=== PATIENT | female | born 2000 | race Caucasian/White ===

== ENCOUNTER 2025-08-01 17:48 | Emergency (ER) | payer OTHER, SELFPAY ==
[2025-08-01 17:56] VITALS: BP 135/88; PULSE 97; RESP 16; TEMP 36.4; O2SAT 100; BMI 34.1
--- OUTSIDE RECORDS SUMMARY | 2025-08-01 18:03 | XMS_ITS | Continuity of Care Document ---
Author Organization TIMOTHY Hagen [facility], [place], [facility] ([facility]) Address [address] [place] [address] Care Team Providers Care Billet Sawyer Name Role Phone CHIQUIS CARTAGENA Primary Care Provider Unavailabl e Assessment No assessment recorded. Plan of Treatment Reminders Order Date Submit Date Provider Last Modified By Organization Details Last Modified Time Details Appointments None recorded. Lab respiratory pathogens DNA and RNA panel, PCR, nasopharynx [address] ([facility]), [address] [place], [address], 15:23:41 Referral None recorded. Procedures None recorded. Surgeries None recorded. Imaging None recorded. Medication Orders fluticasone propionate 50 mcg/actuati on nasal spray,suspe nsion [address] [facility], [address], [place], [address], 5 15:23:40 Patient TargetsNo targets recorded. Patient InstructionsNo instructions recorded. Reason for Referral None Reported. Results Created Date Observation Date Name Description Value Unit Range Abnormal Flag Note LastModifiedBy Organization Detail LastModifiedTime 07/01/20 25 07/01/2025 respi rator y patho gens DNA and RNA panel , PCR, nasop haryn x Covid negati ve Not Available [facility]) [address] [place], [address], 07/01/2025 14:50:21 07/01/20 25 07/01/2025 respi rator y patho gens DNA and RNA panel , PCR, nasop haryn x Rhinovirus negati ve Not Available [facility] ([facility]) [address] [place], [address], 07/01/2025 14:50:21 07/01/20 25 07/01/2025 respi rator y patho gens DNA and RNA panel , PCR, nasop haryn x Influenza A negati ve Not Available [facility] ([facility]) [address] [place], [address], 07/01/2025 14:50:21 07/01/20 25 07/01/2025 respi rator y patho gens DNA and RNA panel , PCR, nasop haryn x Influenza B negati ve Not Available [facility] ([facility]) [address] [place], [address], 07/01/2025 14:50:21 07/01/20 25 07/01/2025 respi rator y patho gens DNA and RNA panel , PCR, nasop haryn x RSV negati ve Not Available [facility] ([facility]) [address] [place], [address], 07/01/2025 14:50:21 Result Notes None recorded. Problems Name Problem SNOMED Code Status Onset Date Resolution Date Notes Provider Name and Address Organization Details Recorded Time Allergic rhinitis 46811779 Active 2023 TIMOTHY Pagan [facility] 4 15:28:36 Asthma 619111953 Active 2023 TIMOTHY Pagan [facility] 4 15:30:13 Gastroesophage al reflux disease 209357429 Active 2024 Castillo Cueva MD [address] [place], [address], [facility], [place] 13:37:53 Problem Notes None recorded. Procedures Surgical History Date Name Laterality Status Provider Name and Address Organization Details Recorded Time transfusion of blood product completed YEVGENIY PIERCE [facility], [place] 10/17/2023 15:30:50 tonsilectomy/jamie noids [facility] 15:31:43 Imaging Results None recorded. Procedure Notes None recorded. Medical Equipment None Reported. Allergies No known drug allergies Medications Name Sig Start Date Stop Date Status Note LastModified by Organization Details LastModified Time azithromyci n 250 mg tablet TAKE 2 TABLETS BY MOUTH ON DAY 1, AND THEN TAKE 1 TABLET BY MOUTH ONCE A DAY ON DAY 2 THROUGH DAY 5 10/17 completed Not Available Not Available Not Available prednisone 20 mg tablet TAKE 3 TABLETS BY MOUTH ONCE DAILY FOR 5 DAYS active Not Available Not Available No t Available sulfamethox azole 800 mg-trimetho prim 160 mg tablet TAKE 1 TABLET BY MOUTH EVERY 12 HOURS FOR 7 DAYS 08/28 completed Not Available Not Available Not Available omeprazole 40 mg capsule,del ayed release TAKE 1 CAPSULE BY MOUTH ONCE DAILY 04/16 completed Not Available Not Available Not Available amoxicillin 875 mg tablet TAKE 1 TABLET BY MOUTH EVERY 12 HOURS FOR 10 DAYS 10/17 completed Not Available Not Available Not Available famotidine 20 mg tablet Take 1 tablet twice a day by oral route for 30 days. 07/01 completed Not Available Not Available Not Available pantoprazol e 40 mg tablet,citlali yed release Take 1 tablet every day by oral route. 07/01 completed Not Available Not Available Not Available albuterol sulfate HFA 90 mcg/actuati on aerosol inhaler INHALE 2 PUFFS BY MOUTH EVERY 4 HOURS NEEDED FOR SHORTNESS OF BREATH OR WHEEZING active Not Available Not Available No t Available cefdinir 300 mg capsule TAKE 1 CAPSULE BY MOUTH TWICE DAILY FOR 10 DAYS 07/12 completed Not Available Not Available Not Available fluticasone propionate 50 mcg/actuati on nasal spray,suspe nsion [place] 2 sprays every day by intranasa l route. 2024 active Not Available Not Available Not Avai lable amoxicillin 875 mg-radha rincon clavulanate 125 mg tablet TAKE 1 TABLET BY MOUTH EVERY 12 HOURS WITH MEALS FOR 7 DAYS 04/16 completed Not Available Not Available Not Available Claritin DAILY active Not Available Not Avai lable Not Available Zyrtec 10 mg capsule Take by oral route. active Not Available Not Available No t Available Vitals Date Recorded Body height Body mass index (BMI) Body weight Oxygen saturation Heart rate Body temperature Systolic And Diastolic Provider Name and Address Organization Details Last Updated DateTime 5 160.02 cm 36.3 kg/m2 49352.4 4 g 99 % 95 /min 98.5 [degF] 166/92 mm[Hg] Shanae Whitejulian [facility] 5 14:35:08 Social History Question Answer Notes LastModified by Yuepu Sifang Details LastModified Time Tobacco Smoking Status Never Smoker [facility] 12/04/2023 11:23:18 What Was The Date Of Your Most Recent Tobacco Screening? 07/01/2025 [email or web address] Information not available 07/01/2025 Sex: Unknown Functional Status Question Answer Note LastModified by Yuepu Sifang Details LastModified Time Do you use any illicit or recreational drugs? No [email or web address] Information not available 12/04/2023 What is your level of alcohol consumption? None [email or web address] Information not available 12/04/2023 Mental Status None recorded. Family History Relationship Description Onset Age of this Age Resolved Age Notes LastModified by Organization Details LastModified Time Father Diabetes mellitus [email or web address] Not available 09/21 15:29:04 Father Hypertensive disorder Not available 09/21 15:29:19 Mother Diabetes mellitus [email or web address] Not available 09/21 15:29:04 Mother Hypertensive disorder [email or web address] Not available 09/21 15:29:19 Maternal Grandmother Malignant neoplasm of breast [email or web address] Not available 09/21 15:29:41 Medical History Condition Response Coronary Artery Disease N Other N Gout N Kidney Stones N Blood Diseases N Hyperthyroidism N Breast Cancer N Blood Transfusion N Depression N COPD N Lung Disease N Hypothyroidism N Developmental or Behavioral Disorders N Defects or Inherited Disease N Breast Problem N Difficulty Swallowing N Anesthesia Complications N Meniere's disease N Anxiety Disorder N Muscle, Joint, or Bone Problems N Vision or Eye Problems N Arthritis N Polyps N Infertility N Cancer N Varicosities N Stroke N Endometriosis N Bladder or Kidney Problems N High Cholesterol N Liver Disease N Headaches N Fibromyalgia N Kidney Disease N Allergies/Hayfever Y Heart Problems N Ear or Hearing Problems N Hospitalizations N Thyroid Problems N GI Problems N ADD/ADHD N Skin Problems N Eating Disorder N Anemia N Constipation N Mental Illness N Ovarian Cancer N Diabetes N Bedwetting N Seizures/Epilepsy N Tuberculosis N Eczema N Diverticulitis N Abuse/Domestic Violence N Asthma Y Reflux/GERD N Hepatitis N Heart Disease N Pulmonary Embolism N Pre-Eclampsia N Hypertension N Chronic Ear Infections N Osteoporosis N Chicken Pox N Autism Spectrum Disorder (ASD) N Thrombophilias N Gynecological HistoryNo gynecological history recorded. Obstetrics History GPAL:G 0 P 0 0 0 0 Immunizations Vaccine Type Date Status Note Provider Nam e and Address Organization Details Recorded Time IPV 2002 completed YEVGENIY kidd [facility] 10/17/2023 15:27:58 MMR 08/27/2003 completed YEVGENIY kidd [facility] 10/17/2023 15:27:59 COVID-19, mRNA, LNP-S, PF, 30 mcg/0.3 mL dose 07/27/2022 completed YEVGENIY kidd [facility] 10/17/2023 15:27:59 COVID-19, mRNA, LNP-S, PF, 30 mcg/0.3 mL dose, robert-sucrose 05/17/2022 completed YEVGENIY kidd [facility] 10/17/2023 15:27:59 varicella 02/12/2004 completed YEVGENIY kidd [facility] 10/17/2023 15:27:59 Hib (PRP-T) 2002 completed YEVGENIY kidd, [facility] 10/17/2023 15:27:59 Hib (PRP-T) 01/05/2003 completed YEVGENIY kidd, [facility] 10/17/2023 15:27:59 Hib (PRP-T) 02/12/2004 completed YEVGENIY kidd [facility] 10/17/2023 15:27:59 Hib (PRP-T) 03/09/2003 completed YEVGENIY kidd, [facility] 10/17/2023 15:27:59 DTaP 2002 completed YEVGENIY kidd [facility] 10/17/2023 15:27:59 DTaP 02/12/2004 completed YEVGENIY kidd [facility] 10/17/2023 15:27:59 DTaP-Hep B-IPV 01/05/2003 completed YEVGENIY kidd, [facility] 10/17/2023 15:27:59 DTaP-Hep B-IPV 03/09/2003 completed YEVGENIY kidd [facility] 10/17/2023 15:27:59 Past Encounters Encounter ID Performer Location Encounter Start Date Encounter Closed Date Diagnosis/Indication Diagnosis SNOMED-CT Code Diagnosis ICD10 Code Diagnosis IMO Codes Diagnosis Note [id number] EMMANUEL GLASS [facility] ([facility]) [address] [place] [address] 07/01/2025 14:22:50 07/01/2025 15:33:16 Viral upper respiratory tract infection 594375665 J06.9 367494 Increase po fluids. Rest. May use otc meds as needed for symptoms. Return to clinic with any new or worsening symptoms. Health Concerns Section Related Observation LastModified by Organization Detai ls LastModified Time None Recorded Concern Status LastModified by Organization Details LastModified Time None Recorded Payers Encounter Date Sequence Insurance Name Policy Number Policy Zhao Covered Member ID Zhao Member ID Guarantor Name 07/01/2025 1 ALLIED - [employer] Darwin Guerra [id number] Darwin Guerra Notes Date Note Type Note Provider Name and Address Organization Details Recorded Time 07/01/2025 text/html ROS as noted in the HPI walk inx3 days nasal congestion, cough, sore throat. Patient has taken regular allergy medication for symptoms. EMMANUEL GLASS [address] [place] [address], [phone], [facility], [place] 07/01/2025 15:23:58 OBGyn Episode No OBEpisode recorded.
--- OUTSIDE RECORDS SUMMARY | 2025-08-01 18:03 | XMS_ITS | Data Portability ---
Author Organization [facility] Kaleb Watts [facility], [facility] Address [address] [address] Care Team Providers Care Dental Ceramist Assistant Name Role Phone KRISTIN CARTAGENA Primary Care Provider Unavailabl e Assessment No assessment recorded. Plan of Treatment Reminders Order Date Submit Date Provider Last Modified By Organization Details Last Modified Time Details Appointments None recorded. Lab respiratory pathogens DNA and RNA panel, PCR, nasopharynx [address] ([facility]), [address] [place] [address], [phone], 15:23:41 Referral None recorded. Procedures None recorded. Surgeries None recorded. Imaging None recorded. Medication Orders fluticasone propionate 50 mcg/actuati on nasal spray,suspe nsion [address] [facility], [address], [place], [address], 5 15:23:40 fluticasone propionate 50 mcg/actuati on nasal spray,suspe nsion 2024 025 [facility], [address], [place], [address], 5 16:27:08 pantoprazol e 40 mg tablet,citlali yed release 2024 025 [facility], [address], [place], [address], 14:58:27 famotidine 20 mg tablet 2024 025 [facility], [address], [place], [address], 14:58:31 Bactrim DS 800 mg-160 mg tablet 2023 025 [facility], [address], [place], [address], 15:18:47 Patient TargetsNo targets recorded. Patient InstructionsNo instructions recorded. Reason for Referral None Reported. Results Created Date Observation Date Name Description Value Unit Range Abnormal Flag Note LastModifiedBy Organization Detail LastModifiedTime 07/01/2007/01/2025 respi rator y patho gens DNA and RNA panel , PCR, nasop haryn x Covid negati ve Not Available [facility] ([facility]) [address] [place], [address], 07/01/2025 14:50:21 07/01/2007/01/2025 respi rator y patho gens DNA and RNA panel , PCR, nasop haryn x Rhinovirus negati ve Not Available [facility] ([facility]) [address] [place], [address], 07/01/2025 14:50:21 07/01/20 25 07/01/2025 respi rator y patho gens DNA and RNA panel , PCR, nasop haryn x Influenza A negati ve Not Available [facility] ([facility]) [address] [place], [address], 07/01/2025 14:50:21 07/01/20 25 07/01/2025 respi rator y patho gens DNA and RNA panel , PCR, nasop haryn x Influenza B negati ve Not Available [facility] ([facility]) [address] [place], [address], 07/01/2025 14:50:21 07/01/20 25 07/01/2025 respi rator y patho gens DNA and RNA panel , PCR, nasop haryn x RSV negati ve Not Available [facility] ([facility]) [address] [place], [address], 07/01/2025 14:50:21 Result Notes None recorded. Problems Name Problem SNOMED Code Status Onset Date Resolution Date Notes Provider Name and Address Organization Details Recorded Time Allergic rhinitis 77968595 Active 2023 YEVGENIY kidd [facility] 4 15:28:36 Asthma 221330659 Active 2023 YEVGENIY kidd [facility] 4 15:30:13 Gastroesophage al reflux disease 291647861 Active 2024 Castillo Cueva MD [address] [place] [address], [phone], [facility] 5 13:37:53 Problem Notes None recorded. Procedures Surgical History Date Name Laterality Status Provider Name and Address Organization Details Recorded Time transfusion of blood product completed YEVGENIY PIERCE [facility] 10/17/2023 15:30:50 tonsilectomy/jamie noids completed YEVGENIY BENJIBarbi PIERCE [facility] 10/17/2023 15:31:43 Imaging Results None recorded. Procedure [...] propionate 50 mcg/actuati on nasal spray,suspe nsion [place] 2 sprays every day by intranasa l route. 2024 active Not Available Not Available Not Avai lable amoxicillin 875 mg-potassiu m clavulanate 125 mg tablet TAKE 1 TABLET [...] Details Last Updated DateTime 5 160.02 cm 37.2 kg/m2 20811.4 g 98 % 88 /min 98.5 [degF] 134/90 mm[Hg] Shanae AGUIRRE [facility], .LCaseyCCasey 5 13:34:59 Date Recorded Body height Body mass index (BMI) Body weight Oxygen saturation Heart rate Body temperature Systolic And Diastolic Provider Name and Address Organization Details Last Updated DateTime 5 160.02 cm 37.4 kg/m2 45439.6 9 g 99 % 92 /min 98.2 [degF] 162/88 mm[Hg] Shanae Real [facility] 5 15:51:27 Date Recorded Body height Body mass index (BMI) Body weight Oxygen saturation Heart rate Body temperature Systolic And Diastolic Provider Name and Address Organization Details Last Updated DateTime 5 160.02 cm 37.7 kg/m2 01685.1 7 g 98 % 98 /min 98.1 [degF] 142/70 mm[Hg] Shanae [facility] 5 15:42:46 Date Recorded Body height Body mass index (BMI) Body weight Body temperature Oxygen saturation Systolic And Diastolic Provider Name and Address Organization Details Last Updated DateTime 4 160.02 cm 36.8 kg/m2 66182.2 1 g 98.5 [degF] 99 % 138/70 mm[Hg] Brisa Carlos [facility] 4 10:35:04 Date Recorded Body height Body mass index (BMI) Body weight Oxygen saturation Heart rate Body temperature Systolic And Diastolic Provider Name and Address Organization Details Last Updated DateTime 5 160.02 cm 36.3 kg/m2 96589.4 4 g 99 % 95 /min 98.5 [degF] 166/92 mm[Hg] Shanae [facility] 5 14:35:08 Social History Question Answer Notes LastModified by [employer] Details LastModified Time Tobacco Smoking Status Never Smoker ELY kidd [facility] 12/04/2023 11:23:18 What Was The Date Of Your Most Recent Tobacco Screening? 07/01/2025 [email or web address] Information not available 07/01/2025 Sex: Unknown Functional Status Question Answer Note LastModified by Organizat ion Details LastModified Time Do you use any illicit or recreational drugs? No [email or web address] Information not available 12/04/2023 What is your level of alcohol consumption? None [email or web address] Information not available 12/04/2023 Mental Status None recorded. Family History Relationship Description Onset Age of this Age Resolved Age Notes LastModified by Organization Details LastModified Time Father Diabetes mellitus [email or web address] Not available 09/21 15:29:04 Father Hypertensive disorder [email or web address] Not available 09/21 15:29:19 Mother Diabetes mellitus [email or web address] Not available 09/21 15:29:04 Mother Hypertensive disorder [email or web address] Not available 09/21 15:29:19 Maternal Grandmother Malignant neoplasm of breast [email or web address] Not available 09/21 15:29:41 Medical History Condition Response Coronary Artery Disease N Other N Gout N Kidney Stones N Blood Diseases N Hyperthyroidism N Breast Cancer N Blood Transfusion N Depression N Hypothyroidism N Lung Disease N COPD N Defects or Inherited Disease N Developmental or Behavioral Disorders N Breast Problem N Difficulty Swallowing N Anesthesia Complications N Meniere's disease N Anxiety Disorder N Muscle, Joint, or Bone Problems N Vision or Eye Problems N Arthritis N Polyps N Infertility N Cancer N Varicosities N Stroke N Endometriosis N Bladder or Kidney Problems N High Cholesterol N Liver Disease N Fibromyalgia N Headaches N Kidney Disease N Allergies/Hayfever Y Heart [...] Recorded Time IPV 2002 [facility]/2023 15:27:58 MMR 08/27/2003 bruna kidd [facility] 10/17/2023 15:27:59 COVID-19, mRNA, LNP-S, PF, 30 mcg/0.3 mL dose 07/27/2022 completed YEVGENIY kidd, [facility] 10/17/2023 15:27:59 COVID-19, mRNA, LNP-S, PF, 30 mcg/0.3 mL dose, robert-sucrose 05/17/2022 completed YEVGENIY PIERCE bernabe, [facility] 10/17/2023 15:27:59 varicella 02/12/2004 completed YEVGENIY kidd, [facility] 10/17/2023 15:27:59 Hib (PRP-T) 2002 completed YEVGENIY kidd [facility] 10/17/2023 15:27:59 Hib (PRP-T) 01/05/2003 [facility] 10/17/2023 15:27:59 Hib (PRP-T) 02/12/2004 completed YEVGENIY PIERCE bernabe, [facility] 10/17/2023 15:27:59 Hib (PRP-T) 03/09/2003 completed YEVGENIY PIERCE bernabe, [facility] 10/17/2023 15:27:59 DTaP 2002 completed YEVGENIY PIERCE bernabe, [facility] 10/17/2023 15:27:59 DTaP 02/12/2004 completed YEVGENIY PIERCE bernabe, [facility] 10/17/2023 15:27:59 DTaP-Hep B-IPV 01/05/2003 completed YEVGENIY kidd, [facility] 10/17/2023 15:27:59 DTaP-Hep B-IPV 03/09/2003 completed YEVGENIY BENJI PIERCE [facility] 10/17/2023 15:27:59 Past Encounters Encounter ID Performer Location Encounter Start Date Encounter Closed Date Diagnosis/Indication Diagnosis SNOMED-CT Code Diagnosis ICD10 Code Diagnosis IMO Codes Diagnosis Note [id number] MARGOT CID [facility] ([facility]) [address] [place] [phone] 12/20/2022 12:20:35 01/01/2023 11:28:03 Acute right otitis media 226529979 H66.91 Acute maxi llary sinusitis 12412264 J01.00 [id number] FRANCISCA NESBITT [facility] ([facility]) [address] [place] [phone] 01/01/2023 10:47:17 01/01/2023 18:56:53 Acute maxillary sinusitis 11424155 J01.00 encouraged patient to complete her dosing as prescribed , restart sudafed at home [id number] Kristin Cartagena MD [facility] ([facility]) [address] [place] [phone] 10/17/2023 15:19:57 10/17/2023 16:17:05 Abdominal pain 32707763 R10.9 Started 2 mos ago with just heartburn. Now its getting worse and more frequent. 10/17/23. Pilonidal cyst 11580458 L05.91 hasnt had trouble in >6 months. trial of antibiotic . may need more definitive treatment if persists. Gastritis 7095329 K29.70 [id number] Kristin Cartagena MD [facility] ([facility]) [address] [place] [phone] 12/04/2023 10:59:46 12/04/2023 13:49:26 Seasonal allergic rhinitis 475006393 J30.2 advised to take zyrtec or xyzal in addition to claritin during allergy season. [id number] Kristin Cartagena MD [facility] ([facility]) [address] [place] [id number] 01/22/2024 15:18:14 01/22/2024 16:54:48 Pilonidal cyst 35336864 L05.91 treated in Sep successful ly w antibiotic s. this is not as bad as that last episode but is recurrent. I suggest surgical evaluation . [id number] DIANA KIRBY APRN [facility] ([facility]) [address] [place] [phone] 02/15/2024 08:46:52 02/15/2024 09:57:19 Acute maxillary sinusitis 05609291 J01.00 [id number] [facility] [address] [place] [phone] 5 04/16/2024 12:49:56 04/16/2024 13:44:41 Cough 76458026 R05.9 COVID-19 006791989 U07.1 Pt is covid positive here in the office today.I counseled the patient on diagnosis, treatment options, medication s, and expectatio ns. All questions were addressed. Paxlovid declined.P t is to stay home until no fever for 24 hours and then mask in public for an additional 5 days.They were instructed to call the office or come in for Follow Up with any questions, concerns, or worsening problems. [id number] EMMANUEL TEMPLE [facility] ([facility]) [address] [place] [phone] 06/17/2024 10:28:22 06/17/2024 11:25:58 Hematoma of right lower leg 7697390138 6224786 S80.11XA Discussed use of antibiotic , apply an ASHLEY bandage for some compressio n, and apply a warm compress for 10 minutes 3-4 times a day. If you develop increased redness, tenderess, swelling or concerns for infection then return for re-evaluat ion [id number] Castillo Cueva MD [facility] ([facility]) [address] [place] [phone] 08/28/2024 13:25:15 09/01/2024 12:23:50 Gastroesophageal reflux disease 563366833 K21.9 Will transition to a higher dose PPI and start Pepcid and have her follow-up with PCP if symptoms or not improving. Patient was instructed to avoid NSAIDs. [id number] EMMANUEL GLASS [facility] ([facility]) [address] [place] [address] 12/02/2024 15:36:47 12/02/2024 16:13:50 Abrasion of intraoral surface of lip 149097226 S00.511A Avoid chewing on lips. RTC with any new or worsening symptoms. [id number] EMMANUEL GLASS [facility] ([facility]) [address] [place], [place] [phone] 12/30/2024 15:34:07 12/30/2024 17:23:34 Acute sinusitis 40795971 J01.80 [id number] May use otc meds like zyrtec and sudafed as needed for symptoms. Return to clinic with any new or worsening symptoms. [id number] EMMANUEL GLASS [facility] ([facility]) [address] [place] [phone] 07/01/2025 14:22:50 07/01/2025 15:33:16 Viral upper respiratory tract infection 498315812 J06.9 [id number] Increase po fluids. Rest. May use otc meds as needed for symptoms. Return to clinic with any new or worsening symptoms. Health Concerns Section Related Observation LastModified by Organization Detai ls LastModified Time None Recorded Concern Status LastModified by Organization Details LastModified Time None Recorded Advance Directives Directive None Recorded Payers Insurance Date Sequence Insurance Name Policy Number Policy Zhao Covered Member ID Zhao Member ID Guarantor Name 07/01/2025 1 MERGED WITH [facility] (O) [id number] Cori Breaux [id number] Darwin Guerra 07/01/2025 1 [facility] [employer] (PPO) Drawin Guerra [id number] Darwin Guerra Notes Date Note Type Note Provider Name and Address Organization Details Recorded Time 06/17/2024 text/html [facility] area on right lower leg. States she hit this leg on her car accidentally about 3 days ago. The area is swollen and tender to touch. EMMANUEL TEMPLE [address] [place] [address], [phone], [facility] 06/17/2024 11:24:06 08/28/2024 text/html ROS as noted in the HPI walk Ryan is a 24-year-old that presents with ulcer like pain. Patient has a history of ulcer in the past. Patient has been taking yggh-gbn-hflnvoe omeprazole without significant improvement. Patient reports burning and upper abdominal pain. Castillo Cueva MD [address] [place] [address], [phone], [facility] 08/31/2024 07:16:51 12/02/2024 text/html ROS as noted in the HPI walk innoticed white dots on edge of lips reports does not itch or hurt. States that she noticed it first today. On the inner aspect of upper and lower lip. Patient states that she does chew on her lips at times. EMMANUEL GLASS [address] [place] [address], [phone], [facility] 12/02/2024 16:12:18 12/30/2024 text/html ROS as noted in the HPI walk inx4 days sinus pressure, MICHEL, full ears, nasal congestion, cough. Hx of asthma. Has been taking otc claritin and zyrtec. EMMANUEL GLASS [address] [place] [address], [phone], [facility] 12/30/2024 16:27:14 07/01/2025 text/html ROS as noted in the HPI walk inx3 days nasal congestion, cough, sore throat. Patient has taken regular allergy medication for symptoms. EMMANUEL GLASS [address] [place] [address], , [facility] 07/01/2025 15:23:58 OBGyn Episode No OBEpisode recorded.
--- NOTE | 2025-08-01 19:00 | XRR_ITS ---
PROCEDURE INFORMATION: Exam: XR Left Hand Exam date and time: 08/01/2025 7:11 PM Age: 24 years old Clinical indication: Injury or trauma; Other: Closed car door on finger; Work related; Crushing; Left; Middle finger; Additional info: Shut hand in door TECHNIQUE: Imaging protocol: Radiologic exam of the left hand. Views: 3 or more views. COMPARISON: No relevant prior studies available. FINDINGS: Bones/joints: Normal. Soft tissues: Normal. XR/XR hand LT min 3V* 25180 IMPRESSION: No acute findings.
--- NOTE | 2025-08-01 21:07 | W.ED.EXTPRO ---
HPI - Extremity Problem General: Chief complaint: Extremity Injury, Upper Stated complaint: Lt middle finger inj Time Seen by Provider: 08/01/25 18:44 Source: patient Mode of arrival: ambulatory Limitations: no limitations History of Present Illness: Patient is a 24-year-old female who presents emergency department after shutting her left hand in car door. She is primarily having pain to the left third digit, stating overall it is mild but she is concerned with the bruising and swelling that has popped up. Has range of motion intact and there is no significant deformity, just wants an x-ray to make sure there is no fracture. MD Complaint: extremity pain Pain Consistency: constant Location: left and upper extremity (hand) Associated symptoms: Deny chest pain, fever(s) or rash Related Data Previous Rx's ?Medication ?Instructions ?Recorded albuterol sulfate 90 mcg/actuation 2 inh inhalation Q4H PRN shortness 06/06/25 aerosol inhaler (Ventolin HFA) of breath or wheezing #6.7 grams cefdinir 300 mg capsule 300 mg PO BID 10 days #20 caps 07/18/25 prednisone 20 mg tablet 60 mg (3 x 20 mg) PO DAILY 5 days 07/18/25 #15 tabs Allergies Allergy/AdvReac Type Severity Reaction Status Date / Time No Known Allergies Allergy Verified 08/01/25 17:59 Review of Systems General: Reports: 10 or more systems reviewed and unremarkable except in HPI and below Const: Denies: fever(s) or chills Card: Denies: chest pain Resp: Denies: dyspnea or productive cough GI: Denies: abdominal pain, nausea, vomiting or diarrhea : Denies: flank pain Musc: Reports: extremity pain (Left hand/fingers) and extremity swelling (Left fingers); Denies: neck pain, back pain, joint pain, joint swelling, joint redness, joint warmth, limited range of motion or muscle weakness Skin/Breast: Denies: rash Neuro: Denies: headache(s), numbness in extremities or weakness in extremities PFSH ED PFSH: Social History Smoking and tobacco/nicotine status: never used tobacco/nicotine Physical Exam Const: COMMON NORMALS: no acute distress, patient oriented x3, no limitations, healthy appearing, alert and well nourished HENMT: COMMON NORMALS: normocephalic and atraumatic HEAD & SCALP: normocephalic and atraumatic Extremity: COMMON NORMALS: full ROM, capillary refill normal, no joint enlargement and no clubbing, cyanosis or edema NARRATIVE EXTREMITY EXAM: There is mild bruising swelling to left middle finger, full range of motion intact cap refill normal. No significant reproducible tenderness palpation. No tenderness within the hand. Neuro: COMMON NORMALS: patient oriented x3, moves all extremities, no focal motor deficits and no sensory deficits noted SENSORIUM/ORIENTATION: Yes alert Skin: COMMON NORMALS: no rashes or lesions noted GENERAL SKIN EXAM: no rashes or lesions noted Course Vital Signs: Vital signs: Vital Signs Temperature 97.6 F 08/01/25 17:56 Pulse Rate 97 08/01/25 17:56 Respiratory Rate 16 08/01/25 17:56 Blood Pressure 135/88 08/01/25 17:56 Pulse Oximetry 100 08/01/25 17:56 MDM - Extremity (Nontraumatic) Medical Decision Making Patient presented after shutting left hand in car door wanted evaluation make sure she did not have a broken middle finger. Exam is reassuring and x-ray does not reveal any fracture this is a contusion we will treat conservatively at home. Lab Data Radiology Impressions Hand X-Ray 08/01/25 19:00 IMPRESSION: No acute findings. All radiology interpretation(s) finalized by discharge Discharge Plan Discharge Patient Disposition: Home Clinical Impression: Contusion of left hand including fingers Condition: Stable Prescriptions: No Action albuterol sulfate [Ventolin HFA] 90 mcg/actuation HFA aerosol inhaler 2 inh inhalation Q4H PRN (Reason: shortness of breath or wheezing) Qty: 6.7 0RF prednisone 20 mg tablet 60 mg PO DAILY 5 Days Qty: 15 0RF cefdinir 300 mg capsule 300 mg PO BID 10 Days Qty: 20 0RF Discharge Orders: Discharge ED (Routine); Ordered 08/01/25 Ordered By: Jaime Burger Referrals: Rebecca Wallace FNP [Primary Care Provider, Unknown] Patient Instructions: Patient Portal & Shila Instructions Activity Restrictions/Additional Instructions: Hand Contusion Discharge Instructions Diagnosis: Contusion (bruise) of the left hand and fingers What happened: Your left hand and fingers were injured when they were smashed in a car door. X-rays show no broken bones. This is a soft tissue injury (bruising) that should heal with time and proper care. What to do at home: Pain and swelling management: - Apply ice to the injured area for 15-20 minutes at a time, several times a day for the first 2-3 days - Keep your hand elevated above the level of your heart when possible to reduce swelling - You may take skan-hhs-lvoelev pain medication such as ibuprofen (Advil, Motrin) or acetaminophen (Tylenol) as directed on the package Activity: - You are cleared to return to work as noted in your work note - Avoid activities that cause significant pain or discomfort - You may use your hand for light activities as tolerated - Gradually increase use of your hand as pain and swelling improve What to watch for - seek medical attention if you develop: - Increasing pain, swelling, or bruising that gets worse after 2-3 days - Numbness or tingling in your fingers that doesn't go away - Inability to move your fingers or hand - Fingers that look crooked or deformed - Signs of infection: increasing redness, warmth, red streaks, pus, or fever - Any new injury to the hand Expected recovery: Most hand contusions heal within 1-2 weeks. Bruising may take several weeks to completely resolve. The bruise may change colors (purple, green, yellow) as it heals - this is normal. Follow-up: Follow up with your primary care doctor if symptoms are not improving after 1-2 weeks or if you develop any of the warning signs listed above. Work note: A work note has been provided clearing you for work. Stand Alone Forms: Work/School Release Print Language: Iraqi Coding Level of Care Code ED Pulmonary Function Technologist for Sunil Tariq
== END 2025-08-01 20:32 | disposition home or self-care (01) ==
PROVIDERS: Emergency Provider Physician Assistant; PCP Nurse Practitioner Family
DX: S60.032A Contusion of left middle finger without damage to nail, initial encounter (principal); W23.0XXA Caught, crushed, jammed, or pinched between moving objects, initial encounter
CPT/HCPCS: 73130; 99283